=== PATIENT | female | born 1960 | race Caucasian/White ===

== ENCOUNTER 2019-09-28 15:50 | Emergency (ER) | payer OTHER ==
[2019-09-28 16:27] LABS: ABS Eosinophils 0.1 10^3/ul (0-0.6); ABS Lymphocytes 2.2 10^3/ul (1.0-4.8); ABS Monocytes 0.7 10^3/ul (0-0.8); ABS Neutrophils 5.3 10^3/ul (1.5-7.7); Eosinophil % 0.8 %; Hematocrit 40 % (35-47); Hemoglobin 13.9 g/dL (12.0-16.0); Lymphocyte % 26.7 %; Mean Corpuscular HGB Conc 35 g/dL (31-36); Mean Corpuscular Hemoglobin 31 pg (27-31); Mean Corpuscular Volume 91 fL (80-97); Mean Platelet Volume 8.6 fL (7.4-10.4); Platelet Count 220 10^3/uL (150-450); Red Blood Count 4.43 10^6 /uL (3.70-4.87); Red Cell Distribution Width 13 % (10-15); White Blood Count 8.3 10^3/uL (3.5-10.8)
[2019-09-28 16:41] LABS: INR 1.03 (0.82-1.09)
[2019-09-28 16:42] LABS: Albumin 4.6 g/dL (3.2-5.2); Albumin/Globulin Ratio 1.9 (1-3); BUN/Creatinine Ratio 22.5 (8-20); Calcium 9.6 mg/dL (8.6-10.3); EGFR African American 101.3 (>60); EGFR Non-African American 83.7 (>60); Globulin 2.4 g/dL (2-4); Potassium 4.4 mmol/L (3.5-5.0); Total Bilirubin 0.4 mg/dL (0.2-1.0)
[2019-09-28] MEDS ORDERED: Ketorolac *IM* INJ* 60 MG/2 ML VIAL IM ONE (16:57)
--- NOTE | 2019-09-28 17:09 | ED ---
HPI Chest Pain - HPI Summary HPI Summary: This pt is a 59 y/o female presenting to [facility] c/o left shoulder blade pain for the past 1 month and now with chest pain since last night. Pt reports last night she felt pain on the left side of her chest on the "inside." She describes her pain as constant waxing and waning and it is aggravated with deep breaths. Pt states her pain when breathing regularly is a dull pain but with deep breaths her pain becomes a stabbing pain. She denies nausea, vomiting, fever, cough, SOB, lightheadedness. Pt has been taking Advil with no relief. Pt report she has never had these symptoms in the past. Denies any recent travel. Denies any PMHx. No FHx of heart disease. Pt admits to occasional alcohol use but denies tobacco and drug use. - History of Current Complaint Chief Complaint: EDChestPainROMI Time Seen by Provider: 09/28/19 16:32 Hx Obtained From: Patient Hx Last Menstrual Period: spots on BCP Onset/Duration: Started Days Ago, Still Present Timing: Lasting Days Current Severity: Moderate Pain Intensity: 8 Pain Scale Used: 0-10 Numeric Chest Pain Location: Left Anterior Chest Pain Radiates: Yes Chest Pain Radiates To:: Back Character: Dull/Aching - Dull pain with breathing normally, Sharp/Stabbing - stabbing pain with deep breaths Aggravating Factor(s): Deep Breaths Alleviating Factor(s): Nothing Associated Signs and Symptoms: Positive: Chest Pain, Other: - POSITIVE: left shoulder blade pain. Negative: Shortness of Breath, Fever, Chills, Lightheadedness, Nausea, Cough, Vomiting - Allergy/Home Medications Allergies/Adverse Reactions: Allergies Allergy/AdvReac Type Severity Reaction Status Date / Time lidocaine Allergy Hives Verified 09/28/19 16:00 bee stings Allergy Severe local Uncoded 09/28/19 16:00 swelling shrimp Allergy Hives Uncoded 09/28/19 16:00 PMH/Surg Hx/FS Hx/Imm Hx Endocrine/Hematology History: Denies: Hx Diabetes, Hx Thyroid Disease Cardiovascular History: Denies: Hx Hypertension Respiratory History: Denies: Hx Asthma, Hx Chronic Obstructive Pulmonary Disease (COPD) GI History: Denies: Hx Ulcer - Cancer History Hx Chemotherapy: No Hx Radiation Therapy: No - Surgical History Surgical History: Yes Surgery Procedure, Year, and Place: Tonsillectomy - Immunization History Immunizations Up to Date: Yes Infectious Disease History: No Infectious Disease History: Denies: Hx Hepatitis, Hx Human Immunodeficiency Virus (HIV), Traveled Outside the [place] in Last 30 Days - Family History Known Family History: Negative: Cardiac Disease - Social History Alcohol Use: Occasionally Substance Use Type: Reports: None Smoking Status (MU): Never Smoked Tobacco Review of Systems Negative: Fever Positive: Chest Pain Negative: Shortness Of Breath, Cough Negative: Vomiting, Nausea Musculoskeletal: Other - POSITIVE: left shoulder blade pain Neurological: Other - NEGATIVE: lightheadedness All Other Systems Reviewed And Are Negative: Yes Physical Exam - Summary Physical Exam Summary: VITAL SIGNS: Reviewed. GENERAL: Patient is a well-developed and nourished female who is lying comfortable in the stretcher. Patient is not in any acute respiratory distress. HEAD AND FACE: No signs of trauma. No ecchymosis, hematomas or skull depressions. No sinus tenderness. EYES: PERRLA, EOMI x 2, No injected conjunctiva, no nystagmus. EARS: Hearing grossly intact. Ear canals and tympanic membranes are within normal limits. MOUTH: Oropharynx within normal limits. NECK: Supple, trachea is midline, no adenopathy, no JVD, no carotid bruit, no c- spine tenderness, neck with full ROM. CHEST: Symmetric. Reproducible chest pain. LUNGS: Clear to auscultation bilaterally. No wheezing or crackles. CVS: Regular rate and rhythm, S1 and S2 present, no murmurs or gallops appreciated. ABDOMEN: Soft, non-tender. No signs of distention. No rebound, no guarding, and no masses palpated. Bowel sounds are normal. MSK: FROM in all major joints, no edema, no cyanosis or clubbing. Reproducible back pain. NEURO: Alert and oriented x 3. No acute neurological deficits. Speech is normal and follows commands. SKIN: Dry and warm Triage Information Reviewed: Yes Vital Signs On Initial Exam: Initial Vitals Temp Pulse Resp BP Pulse Ox 99.3 F 86 19 159/87 99 09/28/19 15:56 09/28/19 15:56 09/28/19 15:56 09/28/19 15:56 09/28/19 15:56 Vital Signs Reviewed: Yes Procedures - Sedation Patient Received Moderate/Deep Sedation with Procedure: No Diagnostics - Vital Signs Vital Signs Temp Pulse Resp BP Pulse Ox 09/28/19 15:56 99.3 F 86 19 159/87 99 - Laboratory Lab Results: Lab Results 09/28/19 09/28/19 09/28/19 Range/Units 16:15 16:15 16:15 WBC 8.3 (3.5-10.8) 10^3/uL RBC 4.43 (3.70-4.87) 10^6 /uL Hgb 13.9 (12.0-16.0) g/dL Hct 40 (35-47) % MCV 91 (80-97) fL MCH 31 (27-31) pg MCHC 35 (31-36) g/dL RDW 13 (10-15) % Plt Count 220 (150-450) 10^3/uL MPV 8.6 (7.4-10.4) fL Neut % (Auto) 63.6 % Lymph % (Auto) 26.7 % Band[place] % (Auto) 8.5 % Eos % (Auto) 0.8 % Baso % (Auto) 0.4 % Absolute Neuts (auto) 5.3 (1.5-7.7) 10^3/ul Absolute Lymphs (auto) 2.2 (1.0-4.8) 10^3/ul Absolute Monos (auto) 0.7 (0-0.8) 10^3/ul Absolute Eos (auto) 0.1 (0-0.6) 10^3/ul Absolute Basos (auto) 0.0 (0-0.2) 10^3/ul Absolute Nucleated RBC 0.0 10^3/ul Nucleated RBC % 0.0 INR (Anticoag Therapy) 1.03 (0.82-1.09) Sodium 139 (135-145) mmol/L Potassium 4.4 (3.5-5.0) mmol/L Chloride 103 (101-111) mmol/L Carbon Dioxide 30 (22-32) mmol/L Anion Gap 6 (2-11) mmol/L BUN 16 (6-24) mg/dL Creatinine 0.71 (0.51-0.95) mg/dL Est GFR ( Amer) 101.3 (>60) Est GFR (Non-Af Amer) 83.7 (>60) BUN/Creatinine Ratio 22.5 H (8-20) Glucose 94 (70-100) mg/dL Calcium 9.6 (8.6-10.3) mg/dL Total Bilirubin 0.40 (0.2-1.0) mg/dL AST 18 (13-39) U/L ALT 20 (7-52) U/L Alkaline Phosphatase 68 (34-104) U/L Troponin I 0.00 (<0.03) ng/mL Total Protein 7.0 (6.4-8.9) g/dL Albumin 4.6 (3.2-5.2) g/dL Globulin 2.4 (2-4) g/dL Albumin/Globulin Ratio 1.9 (1-3) Result Diagrams: 09/28/19 16:15 09/28/19 16:15 Lab Statement: Any lab studies that have been ordered have been reviewed, and results considered in the medical decision making process. - Radiology Chest XR Radiology Interpretation Completed By: Radiologist Summary of Radiographic Findings: IMPRESSION: No evidence for acute intrathoracic disease. Dr. Chacon has reviewed this report. - EKG 1605 Cardiac Rate: Bradycardia - at 51 bpm EKG Rhythm: Sinus Bradycardia Summary of EKG Findings: EKG at 1605 shows sinus bradycardia at a rate of [address] elevations. ED physician has reviewed and interpreted this EKG. Chest Pain Course/Dx - Course Assessment/Plan: This pt is a 59 y/o [facility] left shoulder blade pain for the past 1 month and now with chest pain since last night. Pt reports last night she felt pain on the left side of her chest on the "inside." She describes her pain as constant waxing and waning and it is aggravated with deep breaths. Pt states her pain when breathing regularly is a dull pain but with deep breaths her pain becomes a stabbing pain. She denies nausea, vomiting, fever, cough, SOB, lightheadedness. Pt has been taking Advil with no relief. Pt report she has never had these symptoms in the past. Denies any recent travel. Denies any PMHx. No FHx of heart disease. Pt admits to occasional alcohol use but denies tobacco and drug use. Blood work without a significant abnormality. Troponin is 0.00. In the ED course the patient was given Toradol for the pain. Chest x-ray impression: No evidence for acute intrathoracic disease. After pain medications the symptoms have improved. Patient reports that all symptoms have resolved. Patient's HEART score is: 1, therefore, low suspicion for CAD. Patient is not hypoxic or tachycardic. Wells criteria 0, therefore, no suspicion for PE. Patient has no abdominal bruit thus no suspicion for AAA. Patients pain does not radiate to the back and pain has resolved thus low suspicion for aortic dissection. I discussed all the findings and test results with the patient. Patient was instructed to return to the emergency room immediately if any of the symptoms return or worsen. Patient understands and agrees. Plan of care was discussed with the patient and patient understands and agrees. All questions were answered at patient satisfaction. There were no further complaints or concerns. PE before discharge: CVS: S1 and S2 present. No murmurs appreciated. Abdominal exam before discharge: Soft, non- tender. No signs of distention. No rebound no guarding, and no masses palpated. Bowel sounds are normal. Patient is alert and oriented x 3. Patient is hemodynamically stable. - Chest Pain Differential Diagnosis/HQI/PQRI: Acute HI, ACS, Angina, CHF, Chest Wall, GI Disease, Lower Respiratory Infection, Pulmonary Edema - Diagnoses Provider Diagnoses: Back pain, Musculoskeletal chest pain Discharge ED - Sign-Out/Discharge Documenting (check all that apply): Patient Departure - Discharge home - Discharge Plan Condition: Stable Disposition: HOME Prescriptions: Hydrocodone/Acetaminophen [Hydrocodone-Acetamin 5-300 mg] 1 each PO Q6H PRN #12 tablet MDD 4 PRN Reason: Pain - Severe Ibuprofen TAB* [Motrin TAB* 800 MG] 800 mg PO Q8H PRN #30 tab PRN Reason: Pain - Moderate Patient Education Materials: Chest Pain (ED), Back Pain (ED) Referrals: Kleber Bonner MD [Primary Care Provider] - Additional Instructions: FOLLOW UP WITH YOUR PRIMARY CARE PROVIDER IN 2-3 DAYS. RETURN TO THE ED FOR ANY NEW OR WORSENING SYMPTOMS. - Billing Disposition and Condition Condition: STABLE Disposition: Home - Attestation Statements Document Initiated by Scribe: Yes Documenting Scribe: Mireya Wilder Provider For Whom Scribe is Documenting (Include Credential): Tyson Chacon MD Scribe Attestation: Mireya Yang scribed for Tyson Chacon MD on 09/28/19 at 2147. Scribe Documentation Reviewed: Yes Provider Attestation: The documentation as recorded by the scribe, Mireya Wilder accurately reflects the service I personally performed and the decisions made by me, Tyson Chacon MD Status of Scribe Document: Viewed
[2019-09-28] MEDS ORDERED: HYDROcodone/ACETAMIN 5-325 MG* 1 TAB PO ONE (18:28)
[2019-09-28 18:56] VITALS: BP 125/81
== END 2019-09-28 18:52 | disposition home or self-care (01) ==
LOC: ED 15:50
DX: M54.9 Dorsalgia, unspecified (principal); R07.89 Other chest pain; Z88.4 Allergy status to anesthetic agent
CPT/HCPCS: 36415; 71046; 80053; 84484; 85025; 85610; 93005; 96372; 99283; J1885